=== PATIENT | male | born 1965 | race Caucasian/White ===

== ENCOUNTER 2017-02-13 01:17 | Inpatient (IN) | payer OTHER ==
[2017-02-13] MEDS ORDERED: HYDROmorphONE/DILAUDID 1 MG/ML SYR IVP ONE (01:35)
[2017-02-13] MEDS ORDERED: NS 1,000 ML IV ONE (01:35)
[2017-02-13] MEDS ORDERED: ONDANSETRON 4 MG/2 ML VIAL IVP ONE ×2 (01:35→03:40)
--- NOTE | 2017-02-13 01:35 | EDPHY ---
H & P Stated Complaint: abd pain/distension; has had blockage post reversal in past Time Seen by Provider: 02/13/17 01:26 HPI/ROS: CHIEF COMPLAINT: Small bowel obstruction HISTORY OF PRESENT ILLNESS: The patient is a 51-year-old man who comes to the emergency department concerned for small bowel obstruction. He is visiting from [place] and is supposed to fly back tomorrow morning. 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 He had an ileostomy that was reversed 7 months ago. Since that time has had 2 small bowel obstructions. His last bowel movement or flatus was around 5:00 p.m.. He feels nauseous but has not vomited. He states that he cannot vomit because he also has a history of Alicia fundoplication. No fevers. REVIEW OF SYSTEMS: Constitutional: denies: chills, fever, recent illness, recent injury EENTM: denies: blurred vision, double vision, nose congestion Respiratory: denies: cough, shortness of breath Cardiac: denies: chest pain, irregular heart rate, lightheadedness, palpitations Gastrointestinal/Abdominal: See HPI Genitourinary: denies: dysuria, frequency, hematuria, pain Musculoskeletal: denies: joint pain, muscle pain Skin: denies: lesions, rash, jaundice, bruising Neurological: denies: headache, numbness, paresthesia, tingling, dizziness, weakness Hematologic/Lymphatic: denies: blood clots, easy bleeding, easy bruising Immunologic/allergic: denies: HIV/AIDS, transplant EXAM: GENERAL: Well-appearing, well-nourished and in no acute distress. HEAD: Atraumatic, normocephalic. EYES: Pupils equal round and reactive to light, extraocular movements intact, sclera anicteric, conjunctiva are normal. ENT: TMs normal, nares patent, oropharynx clear without exudates. Moist mucous membranes. NECK: Normal range of motion, supple without lymphadenopathy or JVD. LUNGS: Breath sounds clear to auscultation bilaterally and equal. No wheezes rales or rhonchi. HEART: Regular rate and rhythm without murmurs, rubs or gallops. ABDOMEN: Mild distention, nontender BACK: No CVA tenderness, no spinal tenderness, step-offs or deformities EXTREMITIES: Normal range of motion, no pitting or edema. No clubbing or cyanosis. NEUROLOGICAL: Cranial nerves II through XII grossly intact. Normal speech, normal gait. 5/5 strength, normal movement in all extremities, normal sensation PSYCH: Normal mood, normal affect. SKIN: Warm, dry, normal turgor, no visible rashes or lesions. Source: Patient - Personal History Current Tetanus/Diphtheria Vaccine: Yes - Medical/Surgical History Hx Asthma: No Hx Chronic Respiratory Disease: No Hx Diabetes: No Hx Cardiac Disease: No Hx Renal Disease: No Hx Cirrhosis: No Hx Alcoholism: No Hx HIV/AIDS: No Hx Splenectomy or Spleen Trauma: No Other PMH: PSHx: iliostomy, reversal, iliectomy, short gut syndrome. PMHx: adenocarcinoma, appendiceal cancer - Family History Significant Family History: No pertinent family hx - Social History Smoking Status: Never smoked Alcohol Use: Sober Drug Use: None Constitutional: Initial Vital Signs Temperature (C) 36.2 C 02/13/17 01:19 Heart Rate 105 H 02/13/17 01:19 Respiratory Rate 17 02/13/17 01:19 Blood Pressure 153/96 H 02/13/17 01:19 O2 Sat (%) 96 02/13/17 01:19 O2 Delivery Mode Room Air Allergies/Adverse Reactions: No Known Allergies Allergy (Unverified 02/13/17 01:19) Home Medications: Medication Instructions Recorded Dicyclomine [Bentyl 10 MG (*)] 10 mg PO BID 02/13/17 Hydrocodone/Acetaminophen [[place] 0.5 tab PO BID 02/13/17 5/325 (*)] Hydrocodone/Acetaminophen [[place] 0.5 tab PO DAILY PRN 02/13/17 5/325 (*)] Acetaminophen [Tylenol 325mg (*)] 650 mg PO Q4HRS PRN #0 tab 02/14/17 Medical Decision Making ED Course/Re-evaluation: The patient is refusing an NG tube. I will obtain x-rays rather than CT scan because he had a CT scan done last week and has had multiple. We discussed likely admission and that he will probably have to move his flight tomorrow. 2:10 a.m. I discussed the case with Dr. Davis Gibbs who will admit to the medical service. The patient consented to an NG tube. Also discussed the case with Dr. Lefty Hannah who will consult. Differential Diagnosis: Partial list of the Differential diagnosis considered include but were not limited to; small-bowel obstruction, gastroenteritis, and although unlikely based on the history and physical exam, I also considered ischemia, perforation , volvulus. - Data Points Laboratory Results: Laboratory Results 02/13/17 05:00 02/13/17 01:50 Medications Given: Discontinued Medications Benzocaine (Hurricaine [place]) 1 g MM EDNOW ONE Stop: 02/13/17 02:36 Last Admin: 02/13/17 02:50 Dose: 1 mg Benzocaine (Hurricaine [place]) 1 each MM EDNOW ONE Stop: 02/13/17 04:09 Last Admin: 02/13/17 04:08 Dose: 1 each Hydromorphone HCl (Dilaudid) 1 mg IVP EDNOW ONE Stop: 02/13/17 01:36 Last Admin: 02/13/17 01:48 Dose: 1 mg Hydromorphone HCl (Dilaudid) 0.5 - 1 mg IVP Q4HRS PRN PRN Reason: Pain, Severe Unable to Take PO Stop: 02/23/17 02:29 Last Admin: 02/13/17 11:29 Dose: 1 mg Hydromorphone HCl (Dilaudid) 0.5 - 1 mg IVP Q2 PRN PRN Reason: Pain, Severe Unable to Take PO Stop: 02/23/17 02:29 Last Admin: 02/14/17 00:05 Dose: 1 mg Sodium Chloride (Ns) 1,000 mls @ 0 mls/hr IV EDNOW ONE; Wide Open PRN Reason: Protocol Stop: 02/13/17 01:36 Last Admin: 02/13/17 01:48 Dose: 1,000 mls Potassium Chloride/Sodium Chloride (Ns W/ 20 Kcl/L) 1,000 mls @ 100 mls/hr IV CONT LIZY Stop: 08/12/17 02:44 Last Admin: 02/13/17 17:03 Dose: 1,000 mls Lidocaine (Uroject Lidocaine 2% Jelly) 20 ml UR ONCE ONE Stop: 02/13/17 02:35 Last Admin: 02/13/17 02:49 Dose: 20 ml Lorazepam (Ativan Injection) 2 mg IVP EDNOW ONE Stop: 02/13/17 03:17 Last Admin: 02/13/17 04:07 Dose: 0.5 mg Ondansetron HCl (Zofran) 4 mg IVP EDNOW ONE Stop: 02/13/17 01:36 Last Admin: 02/13/17 01:48 Dose: 4 mg Ondansetron HCl (Zofran) 4 mg IVP Q4HRS PRN PRN Reason: Nausea/Vomiting, Can't Take PO Stop: 08/12/17 02:29 Last Admin: 02/13/17 16:22 Dose: 4 mg Ondansetron HCl (Zofran) 4 mg IVP EDNOW ONE Stop: 02/13/17 03:41 Last Admin: 02/13/17 04:07 Dose: 4 mg Promethazine HCl (Phenergan) 6.25 - 12.5 mg IVP Q6HRS PRN PRN Reason: Nausea/Vomiting, Use 2nd Stop: 08/12/17 02:29 Last Admin: 02/13/17 17:10 Dose: 12.5 mg Throat Lozenges (Cepacol Lozenge) 1 ea PO PRN PRN PRN Reason: Sore Throat Stop: 08/12/17 09:57 Last Admin: 02/13/17 22:26 Dose: 1 ea Departure - Departure Disposition: [facility] Acute Clinical Impression: Small bowel obstruction Condition: Fair
[2017-02-13] MEDS ORDERED: LIDOCAINE 2% JELLY 20 ML (UROJECT) ONE ×2 (02:17→02:21)
[2017-02-13] MEDS ORDERED: BENZOCAINE UNIT DOSE SPRAY HURRICAINE MM ONE ×3 (02:17→04:08)
[2017-02-13 02:22] LABS: ALANINE AMINOTRANSFERASE 48 IU/L (21-72); ALKALINE PHOSPHATASE 91 IU/L (38-126); ANION GAP 14 mEq/L (8-16); ASPARTATE AMINOTRANSFERASE 58 IU/L (17-59); BILIRUBIN,TOTAL 1.6 mg/dL (0.1-1.4); BILIRUBIN-CONJUGATED 0.5 mg/dL (0.0-0.5); BILIRUBIN-UNCONJUGATED 1.1 mg/dL (0.0-1.1); CARBON DIOXIDE 21 mEq/l (22-31); CHLORIDE 106 mEq/L (97-110); CREATININE 0.9 mg/dL (0.7-1.3); GLOMERULAR FILTRATION RATE > 60; GLUCOSE 109 mg/dL (70-100); POTASSIUM 3.4 mEq/L (3.5-5.2); SODIUM 141 mEq/L (134-144); TOTAL PROTEIN 6.6 g/dL (6.3-8.2)
[2017-02-13 02:25] LABS: % IMMATURE GRANULYOCYTES 0.5 % (0.0-1.1); ABSOLUTE IMMATURE GRANULOCYTES 0.02 10^3/uL (0.00-0.10); ADD DIFF? NO; ADD MORPH? NO; ADD SCAN? NO; ATYPICAL LYMPHOCYTE FLAG 10 (0-99); FRAGMENT RBC FLAG 0 (0-99); HEMATOCRIT 32.9 % (40.0-51.0); HEMOGLOBIN 10.2 g/dL (13.7-17.5); LEFT SHIFT FLG 0 (0-99); LIPEMIA HEMOLYSIS FLAG 80 (0-99); MEAN CELL HEMOGLOBIN 25.8 pg (27.9-34.1); MEAN CELL VOLUME 83.1 fL (81.5-99.8); MEAN PLATELET VOLUME 9.9 fL (8.7-11.7); PLATELET CLUMPS FLAG 10 (0-99); PLATELET COUNT 91 10^3/uL (150-400); RED BLOOD CELL COUNT 3.96 10^6/uL (4.40-6.38); RED CELL DISTRIBUTION WIDTH 16.2 % (11.5-15.2)
[2017-02-13] MEDS ORDERED: NS 1,000 ML IV SCH (02:30)
[2017-02-13] MEDS ORDERED: ONDANSETRON DISINTEGRATING 4 MG TAB PO PRN (02:30)
[2017-02-13] MEDS ORDERED: PROMETHAZINE HCL 25 MG/ML INJ IVP PRN (02:30)
[2017-02-13] MEDS ORDERED: ACETAMINOPHEN 325 MG TAB PO PRN (02:30)
[2017-02-13] MEDS ORDERED: oxyCODONE IR 5 MG TAB PO PRN (02:30)
[2017-02-13] MEDS ORDERED: TEMAZEPAM 15 MG CAP PO PRN (02:30)
[2017-02-13] MEDS ORDERED: LIDOCAINE 2% JELLY 20 ML (UROJECT) UR ONE (02:34)
[2017-02-13] MEDS ORDERED: BENZOCAINE 57 G CAN HURRICAINE MM ONE (02:35)
[2017-02-13 02:49] LABS: CALCIUM 9.6 mg/dL (8.5-10.4)
--- NOTE | 2017-02-13 02:51 | PDGENHP ---
History and Physical - Chief Complaint abdominal pain, bloating - History of Present Illness 51yo M in town dropping his daughter off at [employer]. Ate pizza for dinner and shortly thereafter began to have abdominal pain and distention. He is nauseated but cannot vomit 2/2 remote Alicia. Patient has Hx of appendiceal cancer and is s/p HIPEC x2 performed in [place]. The last procedure he had an ileostomy which was taken down 7 months ago and since then has had 3 SBOs, all of which have resolved with conservative Tx. This episode, co R sided lower abdominal pain which is crampy and colicky in nature. Denies fevers and chills History Information - Allergies/Home Medication List Allergies/Adverse Reactions: No Known Allergies Allergy (Unverified 02/13/17 01:19) Home Medications: Bentyl 10 MG (*) 02/13/17 [Last Taken Unknown] [place] 5/325 (*) 02/13/17 [Last Taken Unknown] I have personally reviewed and updated: family history, medical history, social history, surgical history - Past Medical History Additional medical history: appendiceal ca - Surgical History Additional surgical history: colon, small bowel resection x2 with HIPEC x2, ileostomy TD 7 mo ago - Family History Positive for: non-pertinent - Social History Smoking Status: Never smoked Alcohol Use: Occasionally Drug Use: Marijuana Additional social history: In town from [place], dropping daughter off at school Review of Systems ROS: 10pt was reviewed & negative except for what was stated in HPI & below Physical Exam Temp Pulse Resp BP Pulse Ox 36.2 C 105 H 17 153/96 H 96 02/13/17 01:19 02/13/17 01:19 02/13/17 01:19 02/13/17 01:19 02/13/17 01:19 Constitutional: no apparent distress, appears nourished, not in pain, uncomfortable Eyes: PERRL, anicteric sclera, EOMI Ears, Nose, Mouth, Throat: moist mucous membranes, hearing normal, ears appear normal, no oral mucosal ulcers Cardiovascular: regular rate and rhythym, no murmur, rub, or gallop, No edema Respiratory: no respiratory distress, no rales or rhonchi, clear to auscultation Gastrointestinal: other (soft, distended, hyperactive BS, no rebound or guarding , ileostomy site healed.) Skin: warm, normal color, no rashes or abrasions, no fluctuance, no induration, No mottled Musculoskeletal: full muscle strength, no muscle tenderness, normal joint ROM, no joint effusions Neurologic: AAOx3 Psychiatric: interacting appropriately, not anxious, not encephalopathic, thought process linear Lymph, Heme, Immunologic: no cervical LAD, no supraclavicular LAD Lab Data & Imaging Review 02/13/17 01:50 02/13/17 01:50 WBC 3.88 10^3/uL (3.80-9.50) 02/13/17 01:50 RBC 3.96 10^6/uL (4.40-6.38) L 02/13/17 01:50 Hgb 10.2 g/dL (13.7-17.5) L 02/13/17 01:50 Hct 32.9 % (40.0-51.0) L 02/13/17 01:50 MCV 83.1 fL (81.5-99.8) 02/13/17 01:50 MCH 25.8 pg (27.9-34.1) L 02/13/17 01:50 MCHC 31.0 g/dL (32.4-36.7) L 02/13/17 01:50 RDW 16.2 % (11.5-15.2) H 02/13/17 01:50 Plt Count 91 10^3/uL (150-400) L 02/13/17 01:50 MPV 9.9 fL (8.7-11.7) 02/13/17 01:50 Neut % (Auto) 79.2 % (39.3-74.2) H 02/13/17 01:50 Lymph % (Auto) 10.3 % (15.0-45.0) L 02/13/17 01:50 [place] % (Auto) 8.2 % (4.5-13.0) 02/13/17 01:50 Eos % (Auto) 1.5 % (0.6-7.6) 02/13/17 01:50 Baso % (Auto) 0.3 % (0.3-1.7) 02/13/17 01:50 Nucleat RBC Rel Count 0.0 % (0.0-0.2) 02/13/17 01:50 Absolute Neuts (auto) 3.07 10^3/uL (1.70-6.50) 02/13/17 01:50 Absolute Lymphs (auto) 0.40 10^3/uL (1.00-3.00) L 02/13/17 01:50 Absolute Monos (auto) 0.32 10^3/uL (0.30-0.80) 02/13/17 01:50 Absolute Eos (auto) 0.06 10^3/uL (0.03-0.40) 02/13/17 01:50 Absolute Basos (auto) 0.01 10^3/uL (0.02-0.10) L 02/13/17 01:50 Absolute Nucleated RBC 0.00 10^3/uL (0-0.01) 02/13/17 01:50 Immature Gran % 0.5 % (0.0-1.1) 02/13/17 01:50 Immature Gran # 0.02 10^3/uL (0.00-0.10) 02/13/17 01:50 Sodium 141 mEq/L (134-144) 02/13/17 01:50 Potassium 3.4 mEq/L (3.5-5.2) L 02/13/17 01:50 Chloride 106 mEq/L (97-110) 02/13/17 01:50 Carbon Dioxide 21 mEq/l (22-31) L 02/13/17 01:50 Anion Gap 14 mEq/L (8-16) 02/13/17 01:50 BUN 12 mg/dL (7-23) 02/13/17 01:50 Creatinine 0.9 mg/dL (0.7-1.3) 02/13/17 01:50 Estimated GFR > 60 02/13/17 01:50 Glucose 109 mg/dL (70-100) H 02/13/17 01:50 Total Bilirubin 1.6 mg/dL (0.1-1.4) H 02/13/17 01:50 Conjugated Bilirubin 0.5 mg/dL (0.0-0.5) 02/13/17 01:50 Unconjugated Bilirubin 1.1 mg/dL (0.0-1.1) 02/13/17 01:50 AST 58 IU/L (17-59) 02/13/17 01:50 ALT 48 IU/L (21-72) 02/13/17 01:50 Alkaline Phosphatase 91 IU/L (38-126) 02/13/17 01:50 Total Protein 6.6 g/dL (6.3-8.2) 02/13/17 01:50 Albumin 4.0 g/dL (3.5-5.0) 02/13/17 01:50 Lipase 970 IU/L (23-300) H 02/13/17 01:50 Visualized and Interpreted imaging results: Yes Interpretation: Plain abdominal films which were personally reviewed show multiple dilated SB loops with air fluid levels, large distended stomach Assessment & Plan Assessment: Small bowel obstruction (Acute) Plan: 51yo M c SBO - This is the patients 3rd episode of SBO in the last 7 mo since his ileostomy takedown, all of which have resolved with conservative mgmt. Discussed with [facility] patient that the pathology underlying these obstructions is likely at the anastomotic site. His exam is currently reassuring and his vitals and labs are WNL. Will plan for NGT decompression, anticipate that this will resolve in 24- 48hrs of conservative management and he can fly back home. Will cont to follow should he decompensate and need more acute surgical intervention. Discussed with Dr Gibbs.
[2017-02-13] MEDS ORDERED: LORazepam 2 MG/ML INJ IVP ONE (03:16)
--- NOTE | 2017-02-13 03:20 | GHP ---
[f rep st] HISTORY AND PHYSICAL DATE OF ADMISSION: 02/13/2017 CHIEF COMPLAINT: Bowel obstruction. HISTORY OF PRESENT ILLNESS: This is a 51-year-old male with multiple abdominal surgeries, presents with worsening abdominal pain and distention similar to his previous small bowel obstructions. He i s traveling from [place], dropping his daughter off at [employer]. Symptoms started this evening. He had a bowel movement, which was diarrhea about 7 o'clock. He then ate pizza for dinner. Since then, he has had worsening distention. He had Alicia fundoplication 30 years ago and does not throw up thou gh he has had a lot of retching and dry heaving. Abdominal issues started 3 years ago when he was diagnosed with metastatic appendiceal cancer. He h ad a resection at that time and underwent chemo. Recurrence was found about a year and a half ago, for which he got intraperitoneal chemotherapy. During this, he had an enterotomy in his ilium, whic h required an ileostomy. This was taken down about 7 months ago. Since then, he has not been christie l per his . He has had 3 episodes of small bowel obstructions, which have required hospitalizat ion, NG tubes, but no repeat surgery. PAST MEDICAL/SURGICAL HISTORY: As above. MEDICATIONS: Please see medication reconciliation. ALLERGIES: No known drug allergies. FAMILY HISTORY: Reviewed and noncontributory. SOCIAL HISTORY: He is from [place]. REVIEW OF SYSTEMS: A 10-point review of systems is conducted and is negative except per HPI. PHYSICAL EXAMINATION: VITAL SIGNS: Blood pressure 153/96, heart rate 105, respiration rate 17, sat ing 96% on room air, temperature 36.2. GENERAL: The patient is a pleasant man, who appears somewha t uncomfortable resting in bed. HEENT: Shows him to be normocephalic, atraumatic. CARDIOVASCULAR: Regular rate and rhythm. No murmurs, rubs, or gallops. PULMONARY: Lungs clear to auscultation b ilaterally. ABDOMEN: Shows him to have multiple abdominal scars. He is distended. He is tender t o palpation mostly in the left upper quadrant. He has diminished bowel sounds with some high tinkli ng bowel sounds. SKIN: Shows no rash. : Shows no [place]. NEUROLOGIC: Shows him to be alert an d oriented x3. He is moving all extremities. PSYCHIATRIC: Shows normal mood and affect. LABORATORY DATA: CBC shows a hemoglobin of 10.2, platelets of 91, potassium of 3.4, bilirubin of 1. 6, bicarb of 21, lipase of 970. DATA: 1. I discussed this with Dr. Bang, as well as Dr. Hannah. 2. I personally viewed and interpreted his abdominal x-ray. It shows small bowel obstruction with significantly distended stomach. IMPRESSION AND PLAN: A 51-year-old man with small bowel obstruction: He had Hypaque procedure. He has also had multiple abdominal surgeries. Has had multiple bowel obstruction since his ileostomy takedown. Dr. Hannah and I feel this likely anastomotic stricture though there may be also sign ificant adhesions. Will place an NG tube and treat him with supportive care. General Surgery will follow along with us. Given him fluids with potassium. He is anxious to leave as he has a flight, but he can likely push that back until . /[id number]/MODL
[2017-02-13] MEDS ORDERED: LIDOCAINE 2% 5 ML SDV ONE (03:28)
[2017-02-13] MEDS: NS W/ 20 KCl/L 1,000 ML IV SCH ×2 (04:55→17:03)
[2017-02-13 05:15] LABS: % IMMATURE GRANULYOCYTES 0.2 % (0.0-1.1); ABSOLUTE IMMATURE GRANULOCYTES 0.01 10^3/uL (0.00-0.10); ADD DIFF? NO; ADD MORPH? NO; ADD SCAN? NO; ATYPICAL LYMPHOCYTE FLAG 0 (0-99); FRAGMENT RBC FLAG 0 (0-99); HEMATOCRIT 30.3 % (40.0-51.0); HEMOGLOBIN 9.7 g/dL (13.7-17.5); LEFT SHIFT FLG 0 (0-99); LIPEMIA HEMOLYSIS FLAG 80 (0-99); MEAN CELL HEMOGLOBIN 26.4 pg (27.9-34.1); MEAN CELL VOLUME 82.3 fL (81.5-99.8); MEAN PLATELET VOLUME 9.4 fL (8.7-11.7); PLATELET CLUMPS FLAG 0 (0-99); PLATELET COUNT 79 10^3/uL (150-400); RED BLOOD CELL COUNT 3.68 10^6/uL (4.40-6.38); RED CELL DISTRIBUTION WIDTH 16.1 % (11.5-15.2)
[2017-02-13] MEDS: HYDROmorphONE/DILAUDID 1 MG/ML SYR IVP PRN ×4 (06:12→21:42)
--- NOTE | 2017-02-13 08:50 | HOSPPROG ---
Hospitalist Progress Note Assessment/Plan: The patient is a 51-year-old male who presented to the emergency room with worsening abdominal pain. He has a history of multiple abdominal surgeries. He also has had a history of small-bowel obstructions. Today is my 1st encounter with the patient. Chart reviewed. reviewed his care with Dr. Hannah. * small bowel obstruction Currently with an NG tube and supportive care with fluids Concern for an anastomotic stricture as well as possible adhesions abdominal xray pending still having some pain * hypokalemia will follow and treat * anemia with thrombocytopenia unclear of his baseline will need follow up with his primary care provider when he returns home *Plan: patient with ongoing pain, not passing flatus/ he will require another midnight stay making him IP status Subjective: Tank is having ongoing pain to his lower abdominal area. Is passing very little flatus. Objective: Vital Signs Temp Pulse Resp BP Pulse Ox 36.6 C 78 16 108/69 93 02/13/17 07:32 02/13/17 07:32 02/13/17 07:32 02/13/17 07:32 02/13/17 07:32 Laboratory Results 02/13/17 05:00 02/12/17 02/13/17 02/14/17 05:59 05:59 05:59 Intake Total 1134 Balance 1134 - Physical Exam Constitutional: uncomfortable, No not in pain ( some pain in the lower abdominal quadrants) Eyes: PERRL Ears, Nose, Mouth, Throat: hearing normal Cardiovascular: regular rate and rhythym Respiratory: no respiratory distress Gastrointestinal: No normoactive bowel sounds ( very hypoactive) Skin: warm Musculoskeletal: full muscle strength Neurologic: AAOx3 Psychiatric: interacting appropriately ICD10 Worksheet Patient Problems: Problems Problem Status Onset Small bowel obstruction Acute
[2017-02-13] MEDS: CEPACOL LOZENGE PO PRN ×3 (11:08→22:26)
[2017-02-13] MEDS: ONDANSETRON 4 MG/2 ML VIAL IVP PRN ×2 (11:10→16:22)
[2017-02-14] MEDS: HYDROmorphONE/DILAUDID 1 MG/ML SYR IVP PRN (00:05)
[2017-02-14 05:30] LABS: % IMMATURE GRANULYOCYTES 0.3 % (0.0-1.1); ABSOLUTE IMMATURE GRANULOCYTES 0.01 10^3/uL (0.00-0.10); ADD DIFF? NO; ADD MORPH? NO; ADD SCAN? NO; ATYPICAL LYMPHOCYTE FLAG 0 (0-99); FRAGMENT RBC FLAG 0 (0-99); HEMOGLOBIN 9.3 g/dL (13.7-17.5); LEFT SHIFT FLG 0 (0-99); LIPEMIA HEMOLYSIS FLAG 80 (0-99); MEAN CELL VOLUME 83.8 fL (81.5-99.8); MEAN PLATELET VOLUME 9.7 fL (8.7-11.7); PLATELET CLUMPS FLAG 0 (0-99); PLATELET COUNT 76 10^3/uL (150-400); RED BLOOD CELL COUNT 3.58 10^6/uL (4.40-6.38); RED CELL DISTRIBUTION WIDTH 16.1 % (11.5-15.2)
[2017-02-14 05:45] LABS: ALANINE AMINOTRANSFERASE 50 IU/L (21-72); ALBUMIN 3.1 g/dL (3.5-5.0); ALKALINE PHOSPHATASE 89 IU/L (38-126); ANION GAP 9 mEq/L (8-16); ASPARTATE AMINOTRANSFERASE 34 IU/L (17-59); BILIRUBIN,TOTAL 2.4 mg/dL (0.1-1.4); CALCIUM 8.9 mg/dL (8.5-10.4); CARBON DIOXIDE 25 mEq/l (22-31); CHLORIDE 104 mEq/L (97-110); CREATININE 0.9 mg/dL (0.7-1.3); GLOMERULAR FILTRATION RATE > 60; GLUCOSE 64 mg/dL (70-100); POTASSIUM 3.9 mEq/L (3.5-5.2); SODIUM 138 mEq/L (134-144); TOTAL PROTEIN 5.7 g/dL (6.3-8.2)
[2017-02-14 05:51] LABS: BILIRUBIN-CONJUGATED 0.3 mg/dL (0.0-0.5); BILIRUBIN-UNCONJUGATED 2.1 mg/dL (0.0-1.1)
[2017-02-14 07:25] VITALS: BP 120/73; PULSE 79; RESP 18; TEMP 97.3; O2SAT 93
--- NOTE | 2017-02-14 08:39 | SOAPPROG ---
SOAP Progress Note Assessment/Plan: Assessment/Plan: - 51yo M c pSBO - Doing well, NGT output 600cc since placement, abdominal distention markedly improved and he is passing flatus. Will plan clamp trial this AM and if tolerates will plan to ADAT. If he tolerates he wants to fly home later today which may be a reasonable option if all goes well this AM. Discussed with his nurse [place] 02/14/17 08:36 Subjective: looks good and feels better, passing flatus. Denies pain Objective: Vital Signs Temp Pulse Resp BP Pulse Ox 36.3 C 79 18 120/73 93 02/14/17 07:24 02/14/17 07:24 02/14/17 07:24 02/14/17 07:24 02/14/17 07:24 Laboratory Results 02/14/17 05:22 02/14/17 05:22 02/13/17 02/14/17 02/15/17 05:59 05:59 05:59 Output Total 1999 -1999 ICD10 Worksheet Patient Problems: Problems Problem Status Onset Small bowel obstruction Acute
--- NOTE | 2017-02-14 13:14 | GDS ---
[f rep st] DISCHARGE SUMMARY SERVICE: [facility] hospitalist. CONSULT: General surgery. PROCEDURES: Abdomen x-ray. HISTORY AND PHYSICAL EXAMINATION: Please see previously dictated note by Dr. Gibbs. ADMISSION DIAGNOSES: 1. Small bowel obstruction in the setting of multiple previous abdominal surgeries. 2. PICC line status. 3. Metastatic appendiceal cancer. DISCHARGE DIAGNOSES: 1. Small bowel obstruction, resolving. 2. PICC line status. 3. Metastatic appendiceal cancer. HOSPITAL COURSE BY PROBLEM LIST: 1. Small bowel obstruction: He was admitted to the hospital with worsening abdominal pain and dist ention, and diagnosed with a small bowel obstruction. He is from out of town, lives in [place], an d was here dropping off his daughter at . He says he has had multiple similar episodes in the pas t. He was given an NG tube IV fluids, and General Surgery was asked to consult on his care. He was seen by Dr. Hannah. Over the course of his stay, he had decreasing NG tube output, and distent ion was markedly improving. He was passing gas. He was very eager to leave as he had a flight this afternoon. Dr. Hannah saw him on the day of discharge, and said that he was stable to discharg e at this time. He has been instructed to continue with a clear diet and advance as tolerated. He has been instructed to contact his primary care provider and his primary surgeon when he returns noemy e. He has been instructed to immediately return to the hospital if he has any worsening abdominal d istention or pain, recurrent vomiting, or other acute issues. 2. PICC line status: This was used while he was here, and he has been instructed to continue with the routine PICC care as previously advised. 3. History of metastatic appendiceal cancer: He did not have any acute oncology issues throughout his stay. He was noted to have anemia, which is likely chronic for him. He has been asked to follo w up with his primary oncologist, as has been previously dictated. DISCHARGE MEDICATIONS: Should continue with Bentyl twice a day and [place] as needed. No new prescri ptions were given. DISCHARGE INSTRUCTIONS: He is planning to fly home this afternoon to [place]. He has been instruc katarina to follow up with his primary medical team, as indicated above. /[id number]/MODL
== END 2017-02-14 11:29 | disposition home or self-care (01) | DRG 389 ==
LOC: F3E 04:22 → OBSVTOIN 11:24
PROVIDERS: ADMIT Student in an Organized Health Care Education/Training Program; ATTEND Student in an Organized Health Care Education/Training Program
DX: K56.60 Unspecified intestinal obstruction (principal); C78.5 Secondary malignant neoplasm of large intestine and rectum; E87.6 Hypokalemia; Z90.49 Acquired absence of other specified parts of digestive tract
CPT/HCPCS: 96374; J1170; J2060; J2405; J2550